=== PATIENT | female | born 1940 | race Hispanic/Latino ===

== ENCOUNTER 2018-08-20 10:25 | Day surgery (SDC) | payer OTHER, MEDICARE ==
[~2018-08-20] VITALS: Ht 154.9 cm; Wt 55.6 kg
[2018-08-20 11:27] VITALS: BP 186/85
[2018-08-20] MEDS ORDERED: DULCOLAX PO (12:01)
[2018-08-20] MEDS ORDERED: TRAMADOL (12:01)
[2018-08-20] MEDS ORDERED: TYLENOL WITH COD (12:01)
[2018-08-20] MEDS ORDERED: OMEPRAZOLE PO (12:01)
[2018-08-20] MEDS ORDERED: CLONAZEPAM (12:01)
[2018-08-20] MEDS ORDERED: HYPERTENSION (12:01)
[2018-08-20] MEDS ORDERED: SODIUM CHLORIDE 0.9% 1000ML 1,000 ML IV ONE (12:08)
[2018-08-20] MEDS ORDERED: PROPOFOL 10 MG/ML 20ML VIAL IV ONE (12:40)
[2018-08-20 12:59] VITALS: BP 102/47
[2018-08-20 13:05] VITALS: BP 120/65
[2018-08-20 13:10] VITALS: BP 119/64
== END 2018-08-20 13:30 | disposition home or self-care (01) ==
LOC: DAH 10:25 → ENDO 10:25
PROVIDERS: ATTEND Internal Medicine
DX: K29.70 Gastritis, unspecified, without bleeding (principal); K86.2 Cyst of pancreas; K83.8 Other specified diseases of biliary tract; I10 Essential (primary) hypertension; K21.9 Gastro-esophageal reflux disease without esophagitis; F41.9 Anxiety disorder, unspecified; F32.9 Major depressive disorder, single episode, unspecified; K22.70 Barrett's esophagus without dysplasia; K59.00 Constipation, unspecified; Z90.49 Acquired absence of other specified parts of digestive tract; Z98.84 Bariatric surgery status; Z98.890 Other specified postprocedural states; Z79.899 Other long term (current) drug therapy
CPT/HCPCS: 43237; 93005; A4606; J2704; J7030; 43231